=== PATIENT | female | born 1955 | race Caucasian/White ===

== ENCOUNTER → 2018-03-05 | Outpatient (CLI) | payer OTHER, MEDICAID | LOC: FIMAGING 14:42 | PROVIDERS: ATTEND Surgery | DX: I87.2 Venous insufficiency (chronic) (peripheral) (principal); L97.812 Non-pressure chronic ulcer of other part of right lower leg with fat layer exposed; L97.822 Non-pressure chronic ulcer of other part of left lower leg with fat layer exposed ==

== ENCOUNTER → 2018-03-06 | Outpatient (CLI) | payer OTHER, MEDICAID ==
[~2018-03-06] MED LIST: IOPAMIDOL (ISOVUE 370) 100 ML BTL IV ONE
== END ==
LOC: FIMAGING 11:39
PROVIDERS: ATTEND Surgery
DX: I72.2 Aneurysm of renal artery (principal); I70.203 Unspecified atherosclerosis of native arteries of extremities, bilateral legs; N28.89 Other specified disorders of kidney and ureter; M47.895 Other spondylosis, thoracolumbar region; Z87.81 Personal history of (healed) traumatic fracture
CPT/HCPCS: 75635; Q9967; 82565-PO